=== PATIENT | female | born 1950 | race Two or more races ===

== ENCOUNTER → 2025-05-17 | Outpatient (CLI) | payer MEDICARE, MEDICAID, SELFPAY ==
--- NOTE | 2025-05-17 13:45 | XR_ITS ---
Examination: MRI lumbar spine without contrast Date and time of exam: May 14 3025 at 1428 hours INDICATIONS: Low back pain radiating down the left leg 6 months Technique: Multiple MRI axial and sagittal sections lumbar spine. Sagittal T2-weighted images, TR 3500, TE 118 T1 weighted transverse sections, TR 688 T8.5, T2-weighted sagittal sections T1 weighted sagittal sections TR 621, TE 30 T2 axial sections, TR 4, 190, TE 84. Findings: Advanced degenerative disc disease L3-L4 Diffuse lumbar disc desiccation No lumbar fracture L5-S1 2 mm central lumbar disc bulge L4-L5 4 mm central lumbar disc bulge extending to the left foraminal region with mild left L4 ganglionic compression L3-L4 2 mm central lumbar disc bulge L2-L3 no disc protrusion L1-2 no disc protrusion IMPRESSION: L4-L5 4 mm central lumbar disc bulge extending to the left foraminal region with mild left L4 ganglionic compression
== END | disposition home or self-care (01) ==
PROVIDERS: PCP Nurse Practitioner Family; Referring Provider Nurse Practitioner Family; Visit Provider Nurse Practitioner Family
DX: M51.360 Other intervertebral disc degeneration, lumbar region with discogenic back pain only (principal); G95.20 Unspecified cord compression
CPT/HCPCS: 72148